=== PATIENT | male | born 1950 | race African-American/Black ===

== ENCOUNTER 2017-11-20 10:30 | Outpatient (CLI) | payer MEDICARE, BC ==
[~2017-11-20 10:30] MED LIST: CYMBALTA; CYMBALTA60 MG ORAL; [UNRECOGNIZED DRUG - OTHER]; dilantin
--- NOTE | 2017-11-20 11:38 | Diagnostic Imaging Report ---
Clinical Indication: Cough Technique: Spiral acquisitions obtained through the chest. No IV contrast utilized, for referring physician request. Multiplanar reconstructions generated. Total dose length product 748 mGycm. CTDIvol(s) 19 mGy. Dose reduction achieved using automated exposure control Comparison: none Findings: There is generalized mild hyperinflation and small bullae in the bilateral upper lobes and in the superior segment of the lower lobes. No masses, nodules, infiltrates, or effusions are demonstrated. There is minimal scarring in the bilateral lung apices, slightly greater on the right There is minimal anterior wall pericardial thickening versus fluid. The heart size is normal. There are coronary artery calcifications. No mediastinal or hilar mass or adenopathy. The thyroid demonstrates a questionable subcentimeter low-attenuation nodule in the lower pole of the right lobe. The esophagus is unremarkable. No axillary or chest wall mass or adenopathy. The bones are unremarkable except for degenerative thoracic spondylosis changes The upper abdominal anatomy demonstrates a subcentimeter low-attenuation lesion in segment 2 of the liver. Impression: COPD changes, with hyperinflation and bilateral upper lung small bullae No evidence of infiltrate, mass, or nodule Minimal biapical parenchymal scarring Minimal anterior wall pericardial thickening versus fluid Incidental finding subcentimeter low-attenuation left lobe liver lesion, subcentimeter right lower pole thyroid lesion. No further follow-up necessary for either The CT scanner at [facility] is accredited by the [employer] and the scans are performed using protocols designed to limit radiation exposure to as low as reasonably achievable to attain images of sufficient resolution adequate for diagnostic evaluation.
== END 2017-11-20 12:30 | disposition home or self-care (01) ==
LOC: CAT 10:30
DX: R05 Cough (principal); J44.9 Chronic obstructive pulmonary disease, unspecified; K76.9 Liver disease, unspecified; R91.1 Solitary pulmonary nodule; M47.894 Other spondylosis, thoracic region
CPT/HCPCS: 71250

== ENCOUNTER 2018-04-29 14:19 | Emergency (ER) | payer MEDICARE, BC ==
[~2018-04-29] VITALS: Ht 177.8 cm; Wt 86.2 kg
[2018-04-29 14:20] VITALS: BP 137/71
--- NOTE | 2018-04-29 15:01 | Emergency Room Report ---
History of Present Illness General Chief Complaint: Syncope Source: Patient, EMS Present Illness HPI 68-year-old male presents ED status post syncopal episode. Patient states that he was having a beer and started to feel dizzy and sat in a chair and "passed out". No head injury. Patient brought in by EMS. Upon arrival patient awake alert oriented 3. Patient states that he feels better. States that he's had these syncopal episodes for many years now. Was admitted in 2015 for this episode. Had evaluation by neurology and cardiology. Consideration of partial seizure. Started on Dilantin. Patient states he missed his Dilantin dose this morning. Also consideration of orthostaticdiscussion of starting midodrine. patient states he does not take midodrine at this time. States he has not had an episode since 2014. Denies chest pain or shortness of breath. No other aggravating relieving factors. Denies any other associated symptoms Allergies: Coded Allergies: NO KNOWN ALLERGIES (Unverified Allergy, Unknown, 07/13/15) Patient History Past Medical History: seizures Past Surgical History: none Pertinent Family History: none Social History: Denies: smoking, alcohol use, drug use Immunizations: UTD Reviewed Nursing Documentation: PMH: Agreed; PSxH: Agreed Nursing Documentation-PMH Hx Cardiac Problems: Yes Hx Hypertension: Yes Hx Cancer: Yes Hx Gastrointestinal Problems: No Hx Neurological Problems: Yes Hx Seizures: Yes - 2013 was the last seizure Hx Dizziness: Yes Hx Syncope: Yes Review of Systems All Other Systems: negative except mentioned in HPI Physical Exam Vital Signs Date Time Temp Pulse Resp B/P (MAP) Pulse Ox O2 Delivery O2 Flow Rate FiO2 04/29/18 14:20 98.1 62 16 137/71 97 Room Air 98.1 Sp02 EP Interpretation: reviewed, normal General Appearance: no apparent distress, alert, GCS 15, non-toxic Head: normocephalic, atraumatic Eyes: bilateral eye normal inspection, bilateral eye PERRL ENT: hearing grossly normal, normal pharynx, no angioedema, normal voice Neck: full range of motion, supple/symm/no masses Respiratory: chest non-tender, lungs clear, normal breath sounds, speaking full sentences Cardiovascular #1: regular rate, rhythm, no edema Cardiovascular #2: 2+ carotid (R), 2+ carotid (L), 2+ radial (R), 2+ radial (L) , 2+ dorsalis pedis (R), 2+ dorsalis pedis (L) Gastrointestinal: normal bowel sounds, non tender, soft, non-distended, no guarding, no rebound Rectal: deferred Genitourinary: normal inspection, no CVA tenderness Musculoskeletal: back normal, gait/station normal, normal range of motion, non- tender Neurologic: alert, oriented x3, responsive, motor strength/tone normal, sensory intact, speech normal Psychiatric: judgement/insight normal, memory normal, mood/affect normal, no suicidal/homicidal ideation Reflexes: 3+ bicep (R), 3+ bicep (L), 3+ tricep (R), 3+ tricep (L), 3+ knee (R) , 3+ knee (L) Skin: normal color, no rash, warm/dry, well hydrated Lymphatic: no adenopathy Medical Decision Making Diagnostic Impression: Primary Impression: Syncope Qualified Codes: R55 - Syncope and collapse Additional Impressions: Orthostatic hypotension Subtherapeutic serum dilantin level ER Course Hospital Course 68-year-old male presents ED s/p syncopal episode. no complaints now Differential diagnoses include: arrythmia, dehydration, intracranial bleed, seizure Clinical course Patient placed on stretcher. on classroom monitor. After initial history and physical I ordered labs, EKG, IVFS labs reviewed- no leukocytosis, Hb/Hct stable, electrolytes ok, troponins negative, dilantin level subtherapeutic EKG - NSR, some PVCS noted I reviewed EMR. Patient was admitted by me in 2015 for similar episode. Patient had neurology workup. Thought that the syncopal episodes could be possible seizures and patient was started on Dilantin. Seen by cardiology and given that patient was orthostatic consideration for midodrine patient is not taking midodrine at this time. Patient states he feels better and wishes to be discharged. Patient does not want to take Dilantin here and wants to take it at home. Spoke to PMD Dr. White; agrees that patient can be safely discharged to home pending close outpatient follow-up I. I feel this is a highly complex case requiring extensive working including EKG/Rhythm strip, Xray/CT/US, Blood/urine lab work, repeat exams while in ED, and administration of strong opiates/narcotics for pain control, admission to hospital or close patient follow up. Diagnosis - syncope , orthostatic hypotension, subtherapeutic dilantin level Stable and discharged to home. Followup with PMD. Return to ED if symptoms recur or worsen Labs Test 04/29/18 14:52 White Blood Count 4.3 K/UL (4.8-10.8) Red Blood Count 4.61 M/UL (4.70-6.10) Hemoglobin 13.2 G/DL (14.2-18.0) Hematocrit 39.0 % (42.0-52.0) Mean Corpuscular Volume 85 FL (80-99) Mean Corpuscular Hemoglobin 28.6 PG (27.0-31.0) Mean Corpuscular Hemoglobin Concent 33.9 G/DL (32.0-36.0) Red Cell Distribution Width 11.3 % (11.6-14.8) Platelet Count 229 K/UL (150-450) Mean Platelet Volume 5.0 FL (6.5-10.1) Neutrophils (%) (Auto) 55.7 % (45.0-75.0) Lymphocytes (%) (Auto) 32.9 % (20.0-45.0) Monocytes (%) (Auto) 6.3 % (1.0-10.0) Eosinophils (%) (Auto) 4.5 % (0.0-3.0) Basophils (%) (Auto) 0.7 % (0.0-2.0) Sodium Level 141 MMOL/L (136-145) Potassium Level 3.4 MMOL/L (3.5-5.1) Chloride Level 105 MMOL/L (98-107) Carbon Dioxide Level 24 MMOL/L (21-32) Anion Gap 12 mmol/L (5-15) Blood Urea Nitrogen 17 mg/dL (7-18) Creatinine 0.9 MG/DL (0.55-1.30) Estimat Glomerular Filtration Rate > 60 mL/min (>60) Glucose Level 142 MG/DL (74-106) Calcium Level 8.9 MG/DL (8.5-10.1) Total Bilirubin 0.2 MG/DL (0.2-1.0) Aspartate Amino Transf (AST/SGOT) 19 U/L (15-37) Alanine Aminotransferase (ALT/SGPT) 27 U/L (12-78) Alkaline Phosphatase 129 U/L (46-116) Total Creatine Kinase 47 U/L (26-308) Troponin I 0.000 ng/mL (0.000-0.056) Total Protein 7.5 G/DL (6.4-8.2) Albumin 3.5 G/DL (3.4-5.0) Globulin 4.0 g/dL Albumin/Globulin Ratio 0.9 (1.0-2.7) Phenytoin (Dilantin) Level 4.9 ug/mL (10-20) EKG Diagnostic Results Rate: normal Rhythm: NSR ST Segments: no acute changes ASA given to the pt in ED: No Rhythm Strip Diag. Results Rhythm: NSR, no ectopy, other - PVCs Last Vital Signs Date Time Temp Pulse Resp B/P (MAP) Pulse Ox O2 Delivery O2 Flow Rate FiO2 04/29/18 14:22 98.0 76 18 138/80 98 98.1 04/29/18 14:20 Room Air Status: improved Disposition: HOME, SELF-CARE Condition: Stable Referrals: NON PHYSICIAN (PCP) Sonny Crowley MD Apr 29, 2018 15:01
[2018-04-29 15:06] LABS: BASOPHILS % (AUTO) 0.7 % (0.0-2.0); EOSINOPHILS % (AUTO) 4.5 % (0.0-3.0); HEMOGLOBIN 13.2 G/DL (14.2-18.0); LYMPHOCYTES % (AUTO) 32.9 % (20.0-45.0); MEAN CORPUSCULAR VOLUME 85 FL (80-99); MONOCYTES % (AUTO) 6.3 % (1.0-10.0); NEUTROPHILS % (AUTO) 55.7 % (45.0-75.0); PLATELET COUNT 229 K/UL (150-450); RED BLOOD COUNT 4.61 M/UL (4.70-6.10); RED CELL DISTRIBUTION WIDTH 11.3 % (11.6-14.8); WHITE BLOOD COUNT 4.3 K/UL (4.8-10.8)
[2018-04-29 15:17] LABS: ANION GAP 12 mmol/L (5-15); BLOOD UREA NITROGEN 17 mg/dL (7-18); CALCIUM 8.9 MG/DL (8.5-10.1); CARBON DIOXIDE 24 MMOL/L (21-32); CHLORIDE 105 MMOL/L (98-107); CREATININE 0.9 MG/DL (0.55-1.30); POTASSIUM 3.4 MMOL/L (3.5-5.1); SODIUM 141 MMOL/L (136-145)
[2018-04-29 15:29] LABS: ALANINE AMINOTRANSFERASE 27 U/L (12-78); ALBUMIN 3.5 G/DL (3.4-5.0); ALBUMIN/GLOBULIN RATIO 0.9 (1.0-2.7); ALKALINE PHOSPHATASE 129 U/L (46-116); ASPARTATE AMINO TRANSFERASE 19 U/L (15-37); BILIRUBIN,TOTAL 0.2 MG/DL (0.2-1.0); CREATINE KINASE 47 U/L (26-308)
[2018-04-29 16:28] VITALS: BP 128/68
--- NOTE | 2018-05-01 17:31 | Cardiology Report ---
APPROVED REPORT EKG Measurement Heart [id number] Sinus rhythm with occasional premature ventricular complexes Otherwise normal ECG
== END 2018-04-29 16:28 | disposition home or self-care (01) ==
LOC: EDBD 14:19 → EMR 14:35
DX: R55 Syncope and collapse (principal)
CPT/HCPCS: 36415; 80053; 80185; 82550; 84484; 85025; 93005; 96360; 99284

== ENCOUNTER 2018-05-15 10:54 | Outpatient (CLI) | payer MEDICARE, BC ==
--- NOTE | 2018-05-15 15:39 | Diagnostic Imaging Report ---
Indication: Osteoporosis Technique: 10 mm thick slices obtained through the L2, L3, and L4 vertebral bodies. Cortical and trabecular regions of interest were drawn. The average trabecular bone mineral density was calculated. Total dose length product 34.41 mGycm. CTDIvol(s) 4 x 3 mGy. Dose reduction achieved using automated exposure control Comparison: 2014 Findings: The calculated bone mineral density is 104.2 mg ca-ESTRELLA/ml. The T score is -2.66. This indicates the patient's bone mineral density is 2.66 standard deviations below that of normal 20-year-old males. The Z score is 0.45. This indicates the patient's bone mineral density is 0.45 standard deviations above that of age-matched controls. Note that the prior study demonstrates bone mineral density of 127.1, T score of -1.8, and Z score 1.11 Impression: Patient's bone mineral density is greater than 25% below that of normal 20-year-old males. Patient is considered osteoporotic by WHO criteria. Insufficiency fracture risk is high. Patient should be considered for therapy, if not already initiated, with followup scan in one year to monitor response to therapy. Findings represent progression of osteoporosis since prior study of 06/09/[address] scanner at [facility] is accredited by the [employer] and the scans are performed using protocols designed to limit radiation exposure to as low as reasonably achievable to attain images of sufficient resolution adequate for diagnostic evaluation.
== END 2018-05-15 12:54 | disposition home or self-care (01) ==
LOC: RAD 10:54
DX: M81.0 Age-related osteoporosis without current pathological fracture (principal)
CPT/HCPCS: 77078

== ENCOUNTER 2019-08-17 03:04 | Emergency (ER) | payer MEDICARE, BC ==
[~2019-08-17] VITALS: Ht 172.7 cm; Wt 83.9 kg
--- NOTE | 2019-08-17 03:15 | NUR ---
ED Nurse Note: pt walked in c/o left arm pain for past month, pt states he has been going to physical therapy but no improvement, reports taking ibuprofen 600mg around 930pm and helped a little bit. AO4. NAD. VSS. ambulates to [facility] with steady gait. denies injury to extremity
[2019-08-17 03:16] VITALS: BP 154/85
[2019-08-17] MEDS ORDERED: HYDROcodone/Acetamin 5/325 tab ORAL ONE (03:30)
--- NOTE | 2019-08-17 03:33 | NUR ---
ED Nurse Note: imaging at bedside for xray
--- NOTE | 2019-08-17 03:35 | Emergency Room Report ---
History of Present Illness General Chief Complaint: Pain Source: Patient, Medical Record Present Illness HPI This a 69-year-old male with history of prostate cancer. He presents with chief complaint of left shoulder pain. This been ongoing for about 6 weeks. He saw his primary care Dr. Ramírez. He is getting physical therapy. No x-rays or MRI done. Patient complains of throbbing pain. Radiating down his arm. Worse at night. Worse when he tried to sleep. Unable to sleep tonight to rest when he is here. He said it did help when he took his 's ibuprofen. No nausea no vomiting. No fever chills but no chest pain. Worse with certain movement. No exertional component. Allergies: Coded Allergies: NO KNOWN ALLERGIES (Unverified Allergy, Unknown, 07/13/15) Patient History Past Medical History: see triage record, old chart reviewed, other - Prostate cancer Past Surgical History: none Pertinent Family History: none Social History: Denies: smoking Immunizations: other Reviewed Nursing Documentation: PMH: Agreed; PSxH: Agreed Nursing Documentation-PMH Past Medical History: No History, Except For Hx Cardiac Problems: No Hx Hypertension: No Hx Cancer: Yes - PROSTATE CA Hx Gastrointestinal Problems: No Hx Neurological Problems: Yes Hx Seizures: Yes - 2013 was the last seizure Hx Dizziness: Yes Hx Syncope: Yes Review of Systems Eye: Denies: eye pain, blurred vision ENT: Denies: ear pain, nose congestion, throat swelling Respiratory: Denies: cough, shortness of breath Cardiovascular: Denies: chest pain, palpitations Gastrointestinal: Denies: abdominal pain, diarrhea, nausea, vomiting Musculoskeletal: Reports: joint pain; Denies: back pain Skin: Denies: rash Neurological: Denies: headache, numbness Endocrine: Denies: increased thirst, increased urine Hematologic/Lymphatic: Denies: easy bruising All Other Systems: negative except mentioned in HPI Physical Exam Vital Signs Date Time Temp Pulse Resp B/P (MAP) Pulse Ox O2 Delivery O2 Flow Rate FiO2 08/17/19 03:09 97.3 60 18 154/85 (108) 98 Room Air Vitals with high blood pressure Sp02 EP Interpretation: reviewed, normal General Appearance: well appearing, no apparent distress, alert Head: normocephalic, atraumatic Eyes: bilateral eye PERRL, bilateral eye EOMI ENT: hearing grossly normal, normal pharynx Neck: full range of motion, supple, no meningismus Respiratory: chest non-tender, lungs clear, normal breath sounds Cardiovascular #1: regular rate, rhythm, no murmur Gastrointestinal: normal bowel sounds, non tender, no mass, no organomegaly, no bruit, non-distended Musculoskeletal: back normal, normal range of motion, gait/station normal, other - Left shoulder: Full range of motion. Worse with abduction. No deformity. No redness. Sensation normal. Psychiatric: mood/affect normal Medical Decision Making Diagnostic Impression: Primary Impression: Shoulder pain, left Qualified Codes: M25.512 - Pain in left shoulder ER Course Patient with left shoulder pain. This is most likely arthritic in nature. He would benefit from MRI and may be orthopedic referral. No evidence of any septic joint. No evidence of any fracture dislocation. No evidence of any mass. No evidence of referral anginal pain. Will discharge home. Other X-Ray Diagnostic Results Other X-Ray Diagnostic Results : X-Ray ordered: Left shoulder x-rays # of Views/Limited Vs Complete: 3 View Indication: Pain EP Interpretation: Yes Interpretation: no dislocation, no soft tissue swelling, no fractures Impression: No acute disease Electronically Signed by: Ramiro Pennington MD Last Vital Signs Date Time Temp Pulse Resp B/P (MAP) Pulse Ox O2 Delivery O2 Flow Rate FiO2 08/17/19 03:16 97.3 60 18 154/85 98 Room Air Status: improved Disposition: HOME, SELF-CARE Condition: Stable Scripts Ibuprofen* (MOTRIN*) 600 Mg Tablet 600 MG ORAL THREE TIMES A DAY, #30 TAB 0 Refills Prov: Ramiro Pennington MD 08/17/19 Hydrocodone/Acetaminophen 5-325* (HYDROCODONE/ACETAMINOPHEN 5-325*) 1 Each Tablet 1 TAB ORAL Q6H PRN for For Pain, #15 TAB 0 Refills Prov: Ramiro Pennington MD 08/17/19 Additional Instructions: Follow up your doctor in 7 days. You may benefit from an MRI and referral to see orthopedic doctor. You may need cortisone injection. Continue with physical therapy. Return if symptoms worsen. Ramiro Pennington MD Aug 17, 2019 03:34
[2019-08-17] MEDS ORDERED: HYDROCODON-ACE1 EA15 ORAL (03:40)
[2019-08-17] MEDS ORDERED: IBUPROFEN600 MG ORAL (03:40)
[2019-08-17 03:45] VITALS: BP 154/85
--- NOTE | 2019-08-17 03:45 | NUR ---
ER DISCHARGE NOTE: Patient is cleared to be discharged per ERMD, pt is aox4, on room air, with stable vital signs. pt was given dc and prescription instructions, pt was able to verbalize understanding, pt id band removed. pt is able to ambulate with steady gait. pt took all belongings.
--- NOTE | 2019-08-17 08:33 | Diagnostic Imaging Report ---
EXAM: XR Left Shoulder Complete, 2 or More Views CLINICAL HISTORY: TRAUMA TECHNIQUE: Two or more views of the left shoulder. COMPARISON: No relevant prior studies available. FINDINGS: Bones/joints: Normal alignment is seen at the acromioclavicular and glenohumeral joints. No visible displaced fracture or dislocation. Minimal degenerative changes at the acromioclavicular joint. Coracoclavicular and subacromial spaces appear within normal limits. The clavicle and scapula appear intact. Soft tissues: Unremarkable. IMPRESSION: No acute findings.
== END 2019-08-17 03:45 | disposition home or self-care (01) ==
LOC: EMR 03:25
DX: M25.512 Pain in left shoulder (principal); Z85.46 Personal history of malignant neoplasm of prostate; G40.909 Epilepsy, unspecified, not intractable, without status epilepticus
CPT/HCPCS: 99283